=== PATIENT | female | born 1970 ===

== ENCOUNTER 2018-01-05 08:36 | Emergency (ER) | payer SELFPAY | END 2018-01-05 10:39 | disposition left against medical advice (07) | LOC: ED 08:36 | DX: J11.1 Influenza due to unidentified influenza virus with other respiratory manifestations (principal) ==

== ENCOUNTER 2019-08-04 15:11 | Emergency (ER) | payer SELFPAY ==
--- NOTE | 2019-08-04 15:19 | Emergency Department Report ---
Blank Doc - Documentation Documentation: This is a headache, dizziness, and n/v. This initial assessment/diagnostic orders/clinical plan/treatment(s) is/are subject to change based on patient's health status, clinical progression and re- assessment by fellow clinical providers in the ED. Further treatment and workup at subsequent clinical providers discretion. Patient/guardians urged not to elope from the ED as their condition may be serious if not clinically assessed and managed. Initial orders include: 1- Patient sent to [facility] for further evaluation and treatment 2- labs 3- UA
[2019-08-04 16:27] LABS: Bacteria,Urine 1+ /HPF (Negative); Bilirubin,Urine NEG (Negative); Blood,Urine LG (Negative); Color,Urine Yellow (Yellow); Hyaline Casts,Urine 2 /LPF; Mucus,Urine FEW /HPF; Protein,Urine <15 mg/dL mg/dL (Negative); Urobilinogen,Urine < 2.0 mg/dL (<2.0)
[2019-08-04 16:28] LABS: HCG Qualitative,Urine Negative (Negative)
[2019-08-04] MEDS ORDERED: IBUPROFEN PO ONE (17:08)
[2019-08-04 17:39] LABS: Basophils % (Auto) 0.6 % (0.0-1.8); Eosinophils % (Auto) 0.4 % (0.0-4.3); Hematocrit 42.2 % (30.3-42.9); Hemoglobin 13.9 gm/dl (10.1-14.3); Lymphocytes % (Auto) 45.9 % (13.4-35.0); Mean Corpuscular HGB Conc 33 % (30-34); Mean Corpuscular Volume 93 fl (79-97); Monocytes # (Auto) 0.3 K/mm3 (0.0-0.8); Monocytes % (Auto) 4.1 % (0.0-7.3); Platelet Count 303 K/mm3 (140-440); Red Blood Count 4.54 M/mm3 (3.65-5.03); Red Cell Distribution Width 13.9 % (13.2-15.2)
[2019-08-04 17:59] LABS: Alanine Aminotransferase 18 units/L (7-56); Albumin 4.5 g/dL (3.9-5); BUN/Creatinine Ratio 20; Blood Urea Nitrogen 18 mg/dL (7-17); Calcium 9.8 mg/dL (8.4-10.2); Hemolysis Index 5
[2019-08-04] MEDS ORDERED: HumuLIN R IV ONE (18:03)
[2019-08-04] MEDS ORDERED: NACL 0.9% 1000 ML 1,000 ML IV ONE (18:03)
[2019-08-04] MEDS ORDERED: ROCEPHIN/NS 1 GM/50 ML 1 GM/50 ML BAG IV ONE (18:03)
--- NOTE | 2019-08-04 18:05 | Emergency Department Report ---
HPI - General Chief Complaint: Weakness Time Seen by Provider: 08/04/19 15:18 - HPI HPI: 48 YO AA FEMALE COMES TO ER WITH DIARRHEA AND WEAKNESS. REPORTS TAKING HOME MEDS PER ROUTINE. NO CP. NO SOB. NO FEVER OR CHILLS. PMH HTN DM HOME MEDS METFORMIN LISINOPRIL JUARDIA INSULIN AT [facility] SHE IS AMBULATORY, NON TOXIC, AFEBRILE WITH NORMAL VS ON ARRIVAL TO TRIAGE AND [facility] ED Past Medical Hx - Past Medical History Previous Medical History?: Yes Hx Hypertension: Yes Hx Diabetes: Yes - Surgical History Past Surgical History?: No - Family History Family history: no significant - Social History Smoking Status: Current Every Day Smoker Substance Use Type: Alcohol - Medications Home Medications: Home Medications Medication Instructions Recorded Confirmed Last Taken Type Sulfamethoxazole/Trimethoprim 1 each PO BID #10 tablet 08/04/19 Unknown Rx [Bactrim DS TAB] ED Review of Systems ROS: Stated complaint: BODY ACHE/HBP/DIARRHEA Other details as noted in HPI Comment: All other systems reviewed and negative Physical Exam - Physical Exam Vital Signs: Vital Signs 08/04/19 15:19 Temperature 98 F Pulse Rate 98 H Respiratory 18 Rate Blood Pressure 126/87 O2 Sat by Pulse 98 Oximetry Physical Exam: ALERT AND ORIENTED NO FOCAL DEF S1S2 NO TACHY LUNGS CTA ABD SNT NO CVA TENDERNESS AMBULATORY ED Course Vital Signs 08/04/19 15:19 Temperature 98 F Pulse Rate 98 H Respiratory 18 Rate Blood Pressure 126/87 O2 Sat by Pulse 98 Oximetry ED Medical Decision Making - Lab Data Result diagrams: 08/04/19 17:17 08/04/19 17:17 - Medical Decision Making Labs 08/04/19 08/04/19 08/04/19 15:57 17:17 17:17 WBC 6.4 RBC 4.54 Hgb 13.9 Hct 42.2 MCV 93 MCH 31 MCHC 33 RDW 13.9 Plt Count 303 Lymph % (Auto) 45.9 H [place] % (Auto) 4.1 Eos % (Auto) 0.4 Baso % (Auto) 0.6 Lymph # 3.0 [place] # 0.3 Eos # 0.0 Baso # 0.0 Seg Neutrophils % 49.0 Seg Neutrophils # 3.1 Sodium 136 L Potassium 4.7 Chloride 97.4 L Carbon Dioxide 24 Anion Gap 19 BUN 18 H Creatinine 0.9 Estimated GFR > 60 BUN/Creatinine Ratio 20 Glucose 205 H Calcium 9.8 Total Bilirubin 0.30 AST 17 ALT 18 Alkaline Phosphatase 75 Total Protein 7.4 Albumin 4.5 Albumin/Globulin Ratio 1.6 Lipase 47 Urine Color Yellow Urine Turbidity Slightly-cloudy Urine pH 5.0 Ur Specific [place] 1.032 H Urine Protein <15 mg/dl Urine Glucose (UA) >=500 Urine Ketones Neg Urine Blood Lg Urine Nitrite Neg Urine Bilirubin Neg Urine Urobilinogen < 2.0 Ur Leukocyte Esterase Sm Urine WBC (Auto) 52.0 H Urine RBC (Auto) 5.0 U Epithel Cells (Auto) 9.0 Urine Bacteria (Auto) 1+ Hyaline Casts 2 Urine Mucus Few Urine Yeast (Budding) 1+ Urine HCG, Qual Negative Vital Signs 08/04/19 15:19 Temperature 98 F Pulse Rate 98 H Respiratory 18 Rate Blood Pressure 126/87 O2 Sat by Pulse 98 Oximetry - Differential Diagnosis RO DKA/HYPERGLYCMEIA/ INFECTION Critical care attestation.: If time is entered above; I have spent that time in minutes in the direct care of this critically ill patient, excluding procedure time. ED Disposition Clinical Impression: UTI (urinary tract infection), Diabetes, Hyperglycemia Disposition: DC- TO HOME OR SELFCARE Is pt being admited?: No Does the pt Need Aspirin: No Condition: Stable Instructions: Urinary Tract Infection in Women (ED) Additional Instructions: HYDRATE WELL WITH WATER CONTINUE HOME MEDS MOTRIN OR TYLENOL FOR PAIN OR FEVER MEDS ORDERED TODAY FOLLOW UP WITH PCP NEXT WEEK TO BE SURE YOU ARE GETTING BETTER. CONTROL BLOOD SUGAR PER ROUTINE DIABETIC DIET ACTIVITY TOLERATED Referrals: [facility] [Outside] - 3-5 Days Time of Disposition: 18:05
[2019-08-04 19:46] VITALS: BP 121/86
== END 2019-08-04 19:47 | disposition home or self-care (01) ==
LOC: ED 15:11
DX: E11.65 Type 2 diabetes mellitus with hyperglycemia (principal); N39.0 Urinary tract infection, site not specified; I10 Essential (primary) hypertension; F17.200 Nicotine dependence, unspecified, uncomplicated; Z79.899 Other long term (current) drug therapy
CPT/HCPCS: 36415; 80053; 81001; 81025; 82962; 83690; 85025; 87086; 96365; 96375; 99284; J0696; J7030; J1815